=== PATIENT | male | born 1960 | race African-American/Black ===

== ENCOUNTER 2021-01-09 10:54 | Emergency (ER) | payer MEDICARE, SELFPAY | END 2021-01-09 12:50 | disposition home or self-care (01) | LOC: CSHERS 10:54 | DX: H65.91 Unspecified nonsuppurative otitis media, right ear (principal); I10 Essential (primary) hypertension; G62.9 Polyneuropathy, unspecified; E78.6 Lipoprotein deficiency | CPT/HCPCS: 99282 ==